=== PATIENT | male | born 1970 ===

== ENCOUNTER 2022-09-21 08:20 | Outpatient (CLI) | payer OTHER, SELFPAY ==
--- NOTE | 2022-10-14 16:51 | WPDSLEEPSTUD ---
Sleep Study Date of Study: 09/21/22 Ordering Provider: Partha Maier, Interpreting Physician: Kadi Wyman MD Sleep Study Type: Split Polysomnogram Height: 1.85 m Weight: 102.058 kg Body Mass Index: 29.7 Neck Circumference (inches): 16 Rindge: 11 Reason for Sleep Study Hypersomnolence, SUSANNE * 06/08/2012 - CPAP titration; adequate titration at CPAP 9 cm * 04/23/2012, basic PSG; SUSANNE ; AHI 5.5. with heavy snoring and oxygen desaturations Sleep History Nazario Monson is a 51-year-old man who works as a night warehouse selector. He has sleep apnea, has used CPAP for 10 years. His initial sleep study was in 2011. He rarely awakens from sleep feeling short of breath. He occasionally wakes at night with heartburn, belching or coughing. He always snores loudly. He frequently has trouble sleeping with a cold. He rarely wakes up gasping for breath at night. He constantly has breathing problems at night observed by others. He frequently sweats excessively at night. He rarely notices his heart pounding or beating irregularly night. He occasionally falls asleep during the day but never involuntarily or while driving. He does not have loss of muscle tone with strong emotion. He occasionally has daytime difficulties due to excessive sleepiness. Rarely feels paralyzed on waking or falling asleep. He rarely has vivid dreamlike scenes on waking or falling asleep. He does not feel afraid to go to sleep. He rarely has nightmares. He occasionally remembers his dreams. He frequently has racing thoughts. He rarely feels sad or depressed. He occasionally feels anxiety. He frequently has muscular tension. He frequently notices parts of his body jerking he frequently kicks at night. He frequently has crawling and aching feelings in his legs. He occasionally has leg pain at night. He occasionally has morning jaw pain. He frequently grinds his teeth during sleep. He frequently is bothered by pain during the day. He occasionally is awakened by pain at night. Constantly wakes up feeling stiff in the morning, frequently with sore achy muscles and pain in the neck and spine. He has fatigue, memory problems, headaches and insomnia. Normal bedtime is 11:00 p.m. falling asleep within 1-2 hours waking once at night to go to the bathroom. This happens in the middle of the night. He is able to return to sleep within 10-15 minutes. His normal wake time is 6:00 a.m.. On weekends, bedtime is later, midnight and he wakes at 9:00 a.m.. He estimates getting 6 hours of sleep at night. He takes naps in the afternoon or evening. A short nap lasting 10 or 15 minutes is not refreshing. He is drowsy for 2 hours after waking. He feels better in the afternoon compared to other times a day. Habits: Quit tobacco 8 months ago. Caffeine 1 serving per day. No alcohol or recreational substances. [facility] Past Medical History Medical History (Updated 10/14/22 @ 17:00 by Kadi Wyman MD) Acid reflux Asthma Degenerative disc disease Depression Obstructive sleep apnea Surgical History Surgical History (Updated 10/14/22 @ 17:00 by Kadi Wyman MD) History of hernia repair History of repair of anterior cruciate ligament of right knee Medications Medications: bupropion XL 150 mg daily Sleep Procedure This test was performed using the [employer] multiple channel system including EOG, EEG, submental EMG, EKG, nasal and oral airflow using thermistors and nasal pressure sensors, chest and abdominal belts for body position data, and pulse oximetry. Video monitoring was also performed. The study was scored using [facility] guidelines. Patient self-administered zolpidem 10 mg at the start of the study as well as his usual home medication bupropion XL 150 mg. The patient normally sleeps in the lateral position but said he would try to sleep on his back. About a quarter to 1:00 a.m. the patient pulled office had wires. The natural gas technician replaced
[2022-10-14 17:22] VITALS: BMI 29.7
== END 2022-09-22 07:41 | disposition home or self-care (01) ==
LOC: ANHCSM 08:25
PROVIDERS: PCP Internal Medicine; Visit Provider Internal Medicine
DX: G47.33 Obstructive sleep apnea (adult) (pediatric) (principal); F33.41 Major depressive disorder, recurrent, in partial remission; R06.83 Snoring; I10 Essential (primary) hypertension
CPT/HCPCS: 95811